=== PATIENT | male | born 1965 | race American Indian/Alaskan Native ===

== ENCOUNTER 2021-09-27 08:00 | Outpatient (CLI) | payer OTHER | END 2021-09-27 08:30 | disposition home or self-care (01) | LOC: PPH VACUNA 08:00 | PROVIDERS: ATTEND Emergency Medicine Pediatric Emergency Medicine | DX: Z23 Encounter for immunization (principal) ==

== ENCOUNTER 2022-07-02 07:00 | Day surgery (SDC) | payer OTHER | END 2022-07-02 12:10 | disposition home or self-care (01) | LOC: AMB-ENDOS 07:00 → CIR.AMB 15:00 | PROVIDERS: ATTEND Colon & Rectal Surgery | DX: D12.8 Benign neoplasm of rectum (principal); D12.3 Benign neoplasm of transverse colon; Z20.822 Contact with and (suspected) exposure to COVID-19; I10 Essential (primary) hypertension ==

== ENCOUNTER 2022-12-31 05:57 | Day surgery (SDC) | payer OTHER | END 2022-12-31 11:25 | disposition home or self-care (01) | LOC: AMB-ENDOS 05:57 | PROVIDERS: ATTEND Colon & Rectal Surgery | DX: D12.2 Benign neoplasm of ascending colon (principal); D12.0 Benign neoplasm of cecum; D12.3 Benign neoplasm of transverse colon; R19.4 Change in bowel habit; K64.8 Other hemorrhoids; Z20.822 Contact with and (suspected) exposure to COVID-19 ==